=== PATIENT | female | born 1995 | race American Indian/Alaskan Native ===

== ENCOUNTER 2020-04-04 20:54 | Emergency (ER) | payer SELFPAY ==
[2020-04-04 22:15] LABS: Basophils % (Auto) 0.4 % (0.0-1.8); Eosinophils # (Auto) 0.1 K/mm3 (0.0-0.4); Eosinophils % (Auto) 1.4 % (0.0-4.3); Hematocrit 39.8 % (30.3-42.9); Hemoglobin 12.9 gm/dl (10.1-14.3); Lymphocytes % (Auto) 24.3 % (13.4-35.0); Mean Corpuscular HGB Conc 32 % (30-34); Mean Corpuscular Volume 84 fl (79-97); Monocytes # (Auto) 0.6 K/mm3 (0.0-0.8); Platelet Count 253 K/mm3 (140-440); Red Blood Count 4.76 M/mm3 (3.65-5.03); Red Cell Distribution Width 15.3 % (13.2-15.2)
[2020-04-04 22:26] LABS: Blood Urea Nitrogen 10 mg/dL (7-17); Calcium 9.4 mg/dL (8.4-10.2); Hemolysis Index 1
[2020-04-04 22:27] LABS: BUN/Creatinine Ratio 14
[2020-04-04 23:55] LABS: Bilirubin,Urine NEG (Negative); Blood,Urine MOD (Negative); Color,Urine Straw (Yellow); Protein,Urine <15 mg/dL mg/dL (Negative); Urobilinogen,Urine < 2.0 mg/dL (<2.0); WBC,Urine < 1.0 /HPF (0.0-6.0)
--- NOTE | 2020-04-05 00:30 | Emergency Department Report ---
ED Female HPI - General Chief complaint: Vaginal Bleeding Stated complaint: VAGINAL BLEEDING Source: patient Mode of arrival: Ambulatory Limitations: No Limitations - History of Present Illness Initial comments: Patient is a A0 24-year-old -[place] female with no past medical history who presents to the ED with complaint of acute onset persistent heavy vaginal bleeding for the last 2 days. Patient states that her LMP was March 22, 2020 and that she started having another episode of vaginal bleeding 2 days ago. Patient states that she has a history of having used Depo-Provera injectable until earlier in the year 06/09/2019 when she had her last regimen. Patient states that she wanted to wean herself off Depo-Provera and ultimately use subcutaneous Nexplanon. Patient states that she has not had any menstrual cycle until February 20, 2020 when she had her first menstrual cycle after over 6 months without one. Patient states that this latest episode of vaginal bleeding surprised to because she is not on any control and that she had a negative home test. Patient denies abdominal pain, nausea, vomiting, syncope, dizziness, lightheadedness, dysuria, urinary frequency and urgency, diarrhea, dyspareunia, low back pain, fever and chills. MD Complaint: vaginal bleeding -: Sudden, days(s) (2) Location: other (vaginal) Radiation: non-radiating Severity: mild Severity scale (0 -10): 0 Quality: dull Consistency: constant Improves with: none Worsens with: none Are you Now?: No Last Menstrual Period: 03/22/20 EDC: 12/27/20 Associated Symptoms: denies other symptoms, vaginal bleeding, hematuria. denies: vaginal discharge, abdominal pain, nausea/vomiting, fever/chills, hea daches, loss of appetite, dysuria, rash, shortness of breath, weakness - Related Data Sexually active: Yes : 1 Para: 1 A: 0 Allergies Allergy/AdvReac Type Severity Reaction Status Date / Time No Known Allergies Allergy Unverified 04/04/20 21:36 ED Review of Systems ROS: Stated complaint: VAGINAL BLEEDING Other details as noted in HPI Constitutional: denies: chills, fever Eyes: denies: eye pain, eye discharge, vision change ENT: denies: ear pain, throat pain Respiratory: denies: cough, shortness of breath, wheezing Cardiovascular: denies: chest pain, palpitations Endocrine: no symptoms reported Gastrointestinal: denies: abdominal pain, nausea, diarrhea Genitourinary: abnormal menses (Heavy vaginal bleeding). denies: urgency, dysuria, discharge Musculoskeletal: denies: back pain, joint swelling, arthralgia Skin: denies: rash, lesions Neurological: denies: headache, weakness, paresthesias Psychiatric: denies: anxiety, depression Hematological/Lymphatic: denies: easy bleeding, easy bruising ED Past Medical Hx - Past Medical History Previous Medical History?: No - Social History Smoking Status: Never Smoker Substance Use Type: None ED Physical Exam - General Limitations: No Limitations General appearance: alert, in no apparent distress - Head Head exam: Present: atraumatic, normocephalic, normal inspection - Eye Eye exam: Present: normal appearance, PERRL, EOMI Pupils: Present: normal accommodation - ENT ENT exam: Present: normal exam, normal orophraynx, mucous membranes moist, TM's normal bilaterally, normal external ear exam - Neck Neck exam: Present: normal inspection, full ROM - Respiratory Respiratory exam: Present: normal lung sounds bilaterally. Absent: respiratory distress, wheezes, rales, stridor, chest wall tenderness, accessory muscle use, decreased breath sounds, prolonged expiratory - Cardiovascular Cardiovascular Exam: Present: regular rate, normal rhythm, normal heart sounds. Absent: systolic murmur, diastolic murmur, rubs, gallop - GI/Abdominal GI/Abdominal exam: Present: soft, normal bowel sounds. Absent: tenderness, guarding, rebound, hyperactive bowel sounds, hypoactive bowel sounds, organomegaly - Bi-manual exam: Present: other (Pelvic exam deferred) - Extremities Exam Extremities exam: Present: normal inspection, full ROM, normal capillary refill - Back Exam Back exam: Present: normal inspection, full ROM. Absent: tenderness, CVA tenderness (R), CVA tenderness (L), muscle spasm, paraspinal tenderness, vertebral tenderness - Neurological Exam Neurological exam: Present: alert, oriented X3, CN II-XII intact, normal gait, reflexes normal - Psychiatric Psychiatric exam: Present: normal affect, normal mood - Skin Skin exam: Present: warm, dry, intact, normal color. Absent: rash ED Course Vital Signs 04/04/20 21:29 Temperature 98.9 F Pulse Rate 81 Respiratory 16 Rate Blood Pressure 135/72 O2 Sat by Pulse 100 Oximetry ED Medical Decision Making - Lab Data Result diagrams: 04/04/20 21:50 04/04/20 21:50 - Medical Decision Making This is a A0 24-year-old -[place] female with no past medical history who presents to the ED with complaint of acute onset persistent heavy vaginal bleeding for the last 2 days. Patient states that her LMP was March 22, 2020 and that she started having another episode of vaginal bleeding 2 days ago. Patient states that she has a history of having used Depo-Provera injectable until earlier in the year 06/09/2019 when she had her last regimen. Patient states that she wanted to wean herself off Depo-Provera and ultimately use subcutaneous Nexplanon. Patient states that she has not had any menstrual cycle until February 20, 2020 when she had her first menstrual cycle after over 6 months without one. Patient states that this latest episode of vaginal bleeding surprised to because she is not on any control and that she had a negative home test. In the ED, patient is alert and oriented x3 and is not in distress. Lab test results were reviewed and are all nonactionable except for hematuria. Based on the patient's history and physical exam findings as well as lab test results, patient was discharged home and advised to follow-up with her [facility] physician in 5 to 7 days for reevaluation or return to the ED immediately if symptoms get worse. - Differential Diagnosis DUB; ; uterine fibroids; UTI; ovarian cyst Critical care attestation.: If time is entered above; I have spent that time in minutes in the direct care of this critically ill patient, excluding procedure time. ED Disposition Clinical Impression: Dysfunctional uterine hemorrhage Disposition: DC-01 TO HOME OR SELFCARE Is pt being admited?: No Does the pt Need Aspirin: No Condition: Stable Instructions: Abnormal Uterine Bleeding, [id number] Additional Instructions: All lab test results were reviewed and are all nonactionable. Therefore follow- up with your [facility] physician in 5 to 7 days for reevaluation. Return to the ED immediately if symptoms get worse. Referrals: NESTOR EDWARDS MD [Staff Physician] - 3-5 Days Time of Disposition: 00:33 Print Language: POLISH
[2020-04-05 00:50] VITALS: BP 128/74
== END 2020-04-05 00:49 | disposition home or self-care (01) ==
LOC: ED 20:54
DX: N93.8 Other specified abnormal uterine and vaginal bleeding (principal)
CPT/HCPCS: 36415; 80048; 81001; 84702; 85025